=== PATIENT | female | born 1990 | race African-American/Black ===

== ENCOUNTER 2022-06-26 20:56 | Emergency (ER) | payer SELFPAY ==
[2022-06-26] MEDS ORDERED: Ketorolac Tromethamine 30 MG/ML VIAL ONE (21:35)
== END 2022-06-26 21:59 | disposition home or self-care (01) ==
LOC: ERS 20:56
DX: S66.912A Strain of unspecified muscle, fascia and tendon at wrist and hand level, left hand, initial encounter (principal); X58.XXXA Exposure to other specified factors, initial encounter
CPT/HCPCS: 96372; J1885